=== PATIENT | male | born 1950 ===

== ENCOUNTER 2020-06-07 08:34 | Day surgery (SDC) | payer OTHER | END 2020-06-07 14:45 | disposition home or self-care (01) | LOC: AMB-ENDOS 08:34 → ADM 13:45 → AMB-ENDOS 13:45 | PROVIDERS: ATTEND Surgery | DX: D12.2 Benign neoplasm of ascending colon (principal); K57.30 Diverticulosis of large intestine without perforation or abscess without bleeding; Z20.828 Contact with and (suspected) exposure to other viral communicable diseases ==